=== PATIENT | female | born 1965 | race Caucasian/White ===

== ENCOUNTER 2020-02-06 16:09 | Emergency (ER) | payer OTHER, SELFPAY ==
--- NOTE | 2020-02-06 16:20 | ED.GENADULT ---
HPI - General Adult General Chief complaint: Skin/Abscess/Foreign Body Stated complaint: rash on back Time Seen by Provider: 02/06/20 16:20 Source: patient Mode of arrival: ambulatory Limitations: no limitations History of Present Illness HPI narrative: 54-year-old female patient presents to the [facility] with complaints of a rash that has 4 days. Patient states that the rash is painful. Patient states that it hurts to have a short lay on it. Patient states that it is not itchy and she has not been using any creams on it. Patient states she has tried taking Tylenol for pain she does take meloxicam daily for arthritis. Patient states she did take a Benadryl last night which did help her sleep. Patient states that the rash started on the left flank area moved towards the left lower abdomen. Related Data Allergies Allergy/AdvReac Type Severity Reaction Status Date / Time No Known Allergies Allergy Unverified 06/18/17 13:34 Review of Systems Review of Systems: Narrative: CONSTITUTIONAL: Denies fever, chills, or sweats. EYES: Denies visual changes, redness, or discharge. ENT: Denies rhinorrhea, congestion, sore throat, or otalgia. CARDIOVASCULAR: Denies chest pain, palpitations, or edema. RESPIRATORY: Denies cough or dyspnea. GASTROINTESTINAL: Denies abdominal pain, nausea, vomiting, or diarrhea. GENITOURINARY: Denies dysuria or hematuria. SKIN: Positive painful rash x4 days MUSCULOSKELETAL: Denies back pain, joint pain, or myalgia. NEUROLOGIC: Denies headache, numbness, or weakness. PSYCHIATRIC: Denies anxiety or depression. [facility] Past Medical History Medical History (Updated 02/06/20 @ 16:37 by RYANNE Kaur) Arthritis Right knee Surgical History Surgical History (Updated 02/06/20 @ 16:21 by RYANNE Kaur) History of orthopedic surgery Right meniscal tear repair Family History Family History Mother Family history of cardiovascular disease Cerebrovascular accident Father Family history of cardiovascular disease Family history of malignant neoplasm Family history of emphysema Grandparent Family history of cardiovascular disease Family history of malignant neoplasm Other Carcinoma of colon Depression Diabetes mellitus Family history of glaucoma Hypertension Social History Social History Smoking status: Never smoker Second hand tobacco smoke exposure: No Alcohol intake: current Comments At the time of my signature I agree with nursing past medical history, surgical, social, and family history. There is no relevant family history pertinent to the presenting complaint. Exam Narrative: Exam Narrative: GENERAL: Well-appearing, well-nourished, and in no acute distress. HEAD: Normocephalic, atraumatic. EYES: PERRLA and EOMI. ENT: Nares clear, no rhinorrhea or epistaxis. Mucous membranes moist. NECK: Supple. No lymphadenopathy CHEST: Clear to auscultation. No respiratory distress. HEART: Regular rate and rhythm. No murmur heard. Normal peripheral pulses. ABDOMEN: Soft, nontender, nondistended, normal active bowel sounds. EXTREMITIES: Normal range of motion. No edema. SKIN: Warm, dry. Patient has a blistery rash noted to the left flank that has spread to her left lower abdomen. Does not cross the midline. There is no drainage noted. NEURO: No focal deficits. Alert and oriented x3. Course Vital Signs Vital signs: Vital Signs Temperature 36.6 C 02/06/20 16:25 Pulse Rate 71 02/06/20 16:25 Respiratory Rate 16 02/06/20 16:25 Blood Pressure 151/94 H 02/06/20 16:25 Pulse Oximetry 100 02/06/20 16:25 Temperature 36.6 C 02/06/20 16:25 Pulse Rate 71 02/06/20 16:25 Respiratory Rate 16 02/06/20 16:25 Blood Pressure 151/94 H 02/06/20 16:25 Pulse Oximetry 100 02/06/20 16:25 Vital signs reviewed. The patient has been informed that
[2020-02-06 16:25] VITALS: BP 151/94; PULSE 71; RESP 16; TEMP 36.6; O2SAT 100
== END 2020-02-06 16:45 | disposition home or self-care (01) ==
PROVIDERS: Emergency Provider Nurse Practitioner Family; PCP Family Medicine
DX: B02.9 Zoster without complications (principal); M17.11 Unilateral primary osteoarthritis, right knee
CPT/HCPCS: 99213; G0463